=== PATIENT | male | born 1985 | race Hispanic/Latino ===

== ENCOUNTER 2018-01-26 07:20 | Day surgery (SDC) | payer OTHER ==
[2018-01-25 14:32] VITALS: BP 144/85
[2018-01-25 14:48] VITALS: BP 106/58
[2018-01-25 14:49] LABS: BASOPHILS % (AUTO) 1.1 % (0.0-5.0); EOSINOPHILS % (AUTO) 3.1 % (0.0-8.0); HEMATOCRIT 41.8 % (42-54); MEAN CORPUSCULAR HEMOGLOBIN 30.6 pg (27.0-33.0); MEAN CORPUSCULAR VOLUME 87.4 fL (79-99); MONOCYTES % (AUTO) 4.2 % (3.0-13.0); NEUTROPHILS % (AUTO) 59.6 % (40.0-77.0); PLATELET COUNT (AUTO) 227 K/uL (130-400); RED BLOOD CELL COUNT(AUTO) 4.78 MIL/uL (4.50-6.20); RED CELL DISTRIBUTION WIDTH 12.8 % (11.0-15.5)
[2018-01-25 14:55] LABS: CREATININE 1.2 mg/dL (0.5-1.5); POTASSIUM 4.2 mmol/L (3.5-5.1)
[2018-01-26] VITALS (14 sets, daily range): BP systolic 94–135; BP diastolic 47–87
[~2018-01-26] VITALS: Ht 177.8 cm; Wt 89.8 kg
[2018-01-26] MEDS ORDERED: CEFAZOLIN SODIUM 1 GM VIAL ONE (07:26)
[2018-01-26] MEDS ORDERED: LACTATED RINGERS 1000ML 1,000 ML IV ONE (07:47)
[2018-01-26] MEDS ORDERED: WATER FOR INJECTION,STERILE 20 ML VIAL IJ ONE (08:00)
[2018-01-26] MEDS ORDERED: ONDANSETRON HCL 4 MG/2 ML VIAL ONE (08:20)
[2018-01-26] MEDS ORDERED: GLYCOPYRROLATE 0.2 MG/ML 5 ML VIAL ONE (08:20)
[2018-01-26] MEDS ORDERED: DEXAMETHASONE SOD PHOSPHATE 10MG/ML 1ML VIAL ONE (08:20)
[2018-01-26] MEDS ORDERED: LIDOCAINE PF 2% 5ML ABBOJECT ONE (08:20)
[2018-01-26] MEDS ORDERED: NEOSTIGMINE 5MG/5ML SYR IV ONE (08:20)
[2018-01-26] MEDS ORDERED: PROPOFOL 10 MG/ML 20ML VIAL IV ONE (08:21)
[2018-01-26] MEDS ORDERED: FENTANYL CITRATE PF 50 MCG/1 ML 2ML VIAL ONE ×2 (08:21→09:50)
[2018-01-26] MEDS ORDERED: MIDAZOLAM HCL 1 MG/ML 2ML VIAL ONE (08:21)
[2018-01-26] MEDS ORDERED: ROPIVACAINE 0.5% 5MG/ML 30ML IJ ONE (08:26)
[2018-01-26] MEDS: CEFAZOLIN SODIUM 1 GM VIAL IVP ONE ×2 (09:00→09:10)
[2018-01-26] MEDS ORDERED: MEPERIDINE-PF 25 MG/ML SYG ONE (11:31)
[2018-01-26] MEDS ORDERED: HYDR-309 PO (11:34)
[2018-01-26] MEDS ORDERED: CEPH500B PO (11:34)
== END 2018-01-26 13:35 | disposition home or self-care (01) ==
LOC: DAH 07:20
PROVIDERS: ATTEND Orthopaedic Surgery
DX: S86.012A Strain of left Achilles tendon, initial encounter (principal); X58.XXXA Exposure to other specified factors, initial encounter; Y93.9 Activity, unspecified; Y92.89 Other specified places as the place of occurrence of the external cause; Y99.9 Unspecified external cause status; Z68.28 Body mass index [BMI] 28.0-28.9, adult
CPT/HCPCS: 27650; 36415; 80048; 85025; A4218; A4649 ×2; A4930 ×2; A6223; J0690 ×2; J1100; J2001; J2175; J2250; J2405; J2704; J2710; J2795; J3010 ×2; J3490; J7120 ×2; Q4051